=== PATIENT | male | born 1990 | race Caucasian/White ===

== ENCOUNTER 2017-04-10 23:57 | Emergency (ER) | payer OTHER ==
[~2017-04-10] VITALS: Ht 170.2 cm; Wt 59.0 kg
[~2017-04-10 23:57] MED LIST: GENTAMICIN SU3 MG/ML OPHTHALMIC; NOHOMEMEDICATIONS
[2017-04-11] MEDS ORDERED: OSELB75 PO (00:27)
[2017-04-11 00:36] VITALS: BP 105/52
[2017-04-11 01:55] LABS: INFLUENZA B ANTIGEN None Detected (None Detect)
== END 2017-04-11 00:45 | disposition home or self-care (01) ==
LOC: M.ERS 23:57
PROVIDERS: Physician Assistant
DX: J11.1 Influenza due to unidentified influenza virus with other respiratory manifestations (principal); F17.210 Nicotine dependence, cigarettes, uncomplicated; F10.99 Alcohol use, unspecified with unspecified alcohol-induced disorder